=== PATIENT | female | born 1935 | race African-American/Black ===

== ENCOUNTER 2021-07-17 16:22 | Inpatient (IN) | payer OTHER ==
[~2021-07-17] VITALS: Ht 149.9 cm; Wt 59.9 kg
[2021-07-17 17:06] LABS: BASOPHILS % 0.9 % (0.0-2.0); EOSINOPHILS % 3.9 % (0.0-5.0); HEMATOCRIT. 31.9 % (36.0-48.0); HEMOGLOBIN. 10.5 g/dL (12.0-16.0); LYMPHOCYTES % 40.9 % (20.0-50.0); MEAN CORPUSCULAR HEMOGLOBIN 27.3 pg (28.0-32.0); MONOCYTES % 8.7 % (2.0-8.0); NEUTROPHILS % 45.6 % (40.0-76.0); PLATELET 277 x1000/uL (130-400); RED BLOOD CELL COUNT 3.85 mill/uL (4.2-5.4)
[2021-07-17 17:16] LABS: INR 1.1; PROTHROMBIN TIME 11.7 sec (9.6-11.0)
[2021-07-17 17:17] LABS: CHLORIDE 101 mEq/L (98-107)
[2021-07-17] MEDS ORDERED: ONDANSETRON HCL 4MG/2ML INJ IV ONE (19:00)
[2021-07-17] MEDS ORDERED: PANTOPRAZOLE SODIUM 40 MG/VIAL IV ONE (19:30)
[2021-07-17 22:52] LABS: CLARITY URINE CLOUDY (CLEAR); COLOR URINE RED (YELLOW); KETONES URINE NEGATIVE (NEGATIVE); LEUKOCYTE ESTERASE URINE 1+ (NEGATIVE); NITRITE URINE NEGATIVE (NEGATIVE); OCCULT BLOOD URINE 3+ (NEGATIVE); PH URINE 5.5 (4.5-8.0); PROTEIN URINE 1+ (NEGATIVE); SPECIFIC GRAVITY URINE 1.041 (1.005-1.030); UROBILINOGEN URINE 0.2 E.U./dL (0.2-1.0)
[2021-07-17] MEDS ORDERED: IOHEXOL-350 100 ML BOTTLE ONE (23:19)
[2021-07-18] VITALS (13 sets, daily range): BP systolic 99–142; BP diastolic 45–73
[2021-07-18 01:12] LABS: HEMATOCRIT 30.5 % (36.0-48.0); HEMOGLOBIN 10.4 g/dL (12.0-16.0)
[2021-07-18] MEDS ORDERED: HYDR-4135 MT (02:53)
[2021-07-18] MEDS ORDERED: AMLO2.5T45 MT (02:53)
[2021-07-18] MEDS ORDERED: HYDR12.54 MT (02:53)
[2021-07-18] MEDS ORDERED: ONDANSETRON HCL 4MG/2ML INJ IV PRN (03:15)
[2021-07-18] MEDS: ACETAMINOPHEN 325MG TABLET PO PRN ×2 (06:32→11:46)
[2021-07-18] MEDS ORDERED: HYDROCODONE/ACETAMINOPHEN 5/325MG TABLET PO PRN (08:00)
[2021-07-18] MEDS ORDERED: MAGNESIUM/ALUMINUM HYDROXIDE/SIMETHICONE 30ML UDC PO PRN (08:00)
[2021-07-18] MEDS ORDERED: CLONIDINE 0.1MG TABLET PO PRN (08:00)
[2021-07-18] MEDS ORDERED: NALOXONE HCL 0.4MG/ML VIAL IV PRN (08:15)
[2021-07-18 08:40] LABS: BASOPHILS % 0.4 % (0.0-2.0); EOSINOPHILS % 0.3 % (0.0-5.0); HEMATOCRIT. 27.3 % (36.0-48.0); HEMOGLOBIN. 9.4 g/dL (12.0-16.0); LYMPHOCYTES % 25.2 % (20.0-50.0); MEAN CORPUSCULAR HEMOGLOBIN 28.5 pg (28.0-32.0); MEAN CORPUSCULAR VOLUME 82.5 fL (81.0-99.0); MEAN PLATELET VOLUME 7.6 fl (7.4-10.4); MONOCYTES % 7.1 % (2.0-8.0); PLATELET 222 x1000/uL (130-400); RED BLOOD CELL COUNT 3.31 mill/uL (4.2-5.4); RED CELL DISTRIBUTION WIDTH 13.9 % (11.6-14.6)
[2021-07-18 08:53] LABS: CHLORIDE 104 mEq/L (98-107)
[2021-07-18 09:00] LABS: TOTAL IRON BINDING CAPACITY 242 ug/dL (250-450)
[2021-07-18] MEDS ORDERED: HYDROCHLOROTHIAZIDE 12.5MG CAPSULE PO SCH (09:00)
[2021-07-18] MEDS ORDERED: PANTOPRAZOLE SODIUM 40 MG/VIAL IV SCH (09:00)
[2021-07-18] MEDS ORDERED: POTASSIUM CHLORIDE 20MEQ TABLET SR PO SCH (09:00)
[2021-07-18] MEDS ORDERED: AMLODIPINE 5MG TABLET PO SCH (09:00)
[2021-07-18] MEDS ORDERED: FAMOTIDINE 20MG TABLET PO SCH (09:00)
[2021-07-18] MEDS: HYDRALAZINE HCL 50MG TABLET PO SCH ×2 (09:23→22:24)
[2021-07-18] MEDS ORDERED: CEFTRIAXONE 1,000 MG in DEXTROSE 5% WATER 50 ML IV SCH (09:30)
[2021-07-18 10:32] LABS: FOLIC ACID (FOLATE) SERUM 12.6 ng/mL (>5.38)
[2021-07-18 12:34] LABS: *BENZODIAZEPINES SCREEN URINE NEGATIVE (NEGATIVE)
[2021-07-18 12:35] LABS: *AMPHETAMINES SCREEN URINE NEGATIVE (NEGATIVE); *COCAINE SCREEN URINE NEGATIVE (NEGATIVE); CANNABINOID URINE SCREEN NEGATIVE (NEGATIVE); METHADONE URINE SCREEN NEGATIVE (NEGATIVE); OPIATES URINE SCREEN NEGATIVE (NEGATIVE); PHENCYCLIDINE URINE SCREEN NEGATIVE (NEGATIVE)
[2021-07-18 12:36] LABS: *BARBITURATES SCREEN URINE NEGATIVE (NEGATIVE)
== END 2021-07-18 23:56 | disposition short-term general hospital (02) | DRG 378 ==
LOC: ER 16:22 → 5EST 21:18 → ENRESERV 07-18 00:33
PROVIDERS: ADMIT Internal Medicine; ATTEND Internal Medicine
PROC: 30233N1 Transfusion of Nonautologous Red Blood Cells into Peripheral Vein, Percutaneous Approach (ICD-10-PCS; principal; 2021-07-17)
DX: K57.91 Diverticulosis of intestine, part unspecified, without perforation or abscess with bleeding (principal); E44.0 Moderate protein-calorie malnutrition; N39.0 Urinary tract infection, site not specified; I10 Essential (primary) hypertension; F17.200 Nicotine dependence, unspecified, uncomplicated; Z20.822 Contact with and (suspected) exposure to COVID-19; D50.9 Iron deficiency anemia, unspecified; E87.6 Hypokalemia; I95.9 Hypotension, unspecified; Z88.8 Allergy status to other drugs, medicaments and biological substances; Z68.26 Body mass index [BMI] 26.0-26.9, adult; Z79.899 Other long term (current) drug therapy
CPT/HCPCS: 36415; 74174; 80048; 80053; 80305; 81003; 82270; 82607; 82728; 82746; 83540; 83550; 84484; 85014; 85018; 85025; 86850; 86900; 86920; 87426; 93005; 93306; 99285; C9113; J0696; J2405; J7060; P9021; Q9967

== ENCOUNTER 2021-07-21 20:14 | Inpatient (IN) | payer OTHER ==
[~2021-07-21] VITALS: Ht 149.9 cm; Wt 59.9 kg
[~2021-07-21 20:14] MED LIST: AMLO2.5T45 MT; HYDR-4135 MT; HYDR12.54 MT
[2021-07-21] MEDS ORDERED: PANTOPRAZOLE SODIUM 40 MG/VIAL IV STA (21:28)
[2021-07-21 22:13] LABS: BASOPHILS % 0.5 % (0.0-2.0); EOSINOPHILS % 0.3 % (0.0-5.0); HEMATOCRIT. 21.6 % (36.0-48.0); HEMOGLOBIN. 7.1 g/dL (12.0-16.0); LYMPHOCYTES % 13.3 % (20.0-50.0); MEAN CORPUSCULAR HEMOGLOBIN 28.4 pg (28.0-32.0); MEAN CORPUSCULAR VOLUME 86.9 fL (81.0-99.0); MEAN PLATELET VOLUME 7.6 fl (7.4-10.4); MONOCYTES % 4.4 % (2.0-8.0); NEUTROPHILS % 81.5 % (40.0-76.0); PLATELET 210 x1000/uL (130-400); RED BLOOD CELL COUNT 2.49 mill/uL (4.2-5.4); RED CELL DISTRIBUTION WIDTH 14.6 % (11.6-14.6)
[2021-07-21 22:16] LABS: CHLORIDE 105 mEq/L (98-107)
[2021-07-21] MEDS ORDERED: SODIUM CHLORIDE 0.9% 1,000 ML IV ONE (23:15)
[2021-07-22] MEDS ORDERED: POTASSIUM CHLORIDE 20MEQ TABLET SR PO SCH (01:30)
[2021-07-22] MEDS ORDERED: ACETAMINOPHEN 325MG TABLET PO PRN (01:30)
[2021-07-22 05:45] VITALS: BP 149/69
[2021-07-22 08:00] VITALS: BP 142/68
[2021-07-22] MEDS ORDERED: PANTOPRAZOLE SODIUM 40 MG/VIAL IV SCH (10:00)
[2021-07-22 12:00] VITALS: BP 148/57
[2021-07-22 16:00] VITALS: BP 135/63
[2021-07-22 17:09] LABS: BASOPHILS % 0.5 % (0.0-2.0); EOSINOPHILS % 1.3 % (0.0-5.0); HEMATOCRIT. 21.2 % (36.0-48.0); HEMOGLOBIN. 7.2 g/dL (12.0-16.0); LYMPHOCYTES % 36.2 % (20.0-50.0); MEAN CORPUSCULAR HEMOGLOBIN 28.5 pg (28.0-32.0); MEAN CORPUSCULAR VOLUME 83.9 fL (81.0-99.0); MONOCYTES % 6.7 % (2.0-8.0); NEUTROPHILS % 55.3 % (40.0-76.0); PLATELET 191 x1000/uL (130-400); RED BLOOD CELL COUNT 2.53 mill/uL (4.2-5.4); RED CELL DISTRIBUTION WIDTH 14.3 % (11.6-14.6)
[2021-07-22 17:13] LABS: CHLORIDE 106 mEq/L (98-107)
[2021-07-22 17:14] LABS: TOTAL IRON BINDING CAPACITY 197 ug/dL (250-450)
[2021-07-22 17:47] LABS: VITAMIN B12 SERUM >2000 pg/mL pg/mL (211-911)
[2021-07-22 21:23] VITALS: BP 135/61
== END 2021-07-23 00:01 | disposition short-term general hospital (02) | DRG 690 ==
LOC: ER 20:14 → 8WST 07-22 00:58 → ENRESERV 07-22 02:57
PROVIDERS: ADMIT Family Medicine Adult Medicine; ATTEND Family Medicine Adult Medicine
PROC: 30233N1 Transfusion of Nonautologous Red Blood Cells into Peripheral Vein, Percutaneous Approach (ICD-10-PCS; principal; 2021-07-22)
DX: N39.0 Urinary tract infection, site not specified (principal); I10 Essential (primary) hypertension; D50.0 Iron deficiency anemia secondary to blood loss (chronic); I95.9 Hypotension, unspecified; Z88.8 Allergy status to other drugs, medicaments and biological substances; Z79.899 Other long term (current) drug therapy
CPT/HCPCS: 36415; 71045; 80048; 80053; 82248; 82607; 82746; 83540; 83550; 83605; 84484; 85025; 86850; 86900; 86920; 99291; C9113; J7030; P9016

== ENCOUNTER 2024-06-15 18:09 | Emergency (ER) | payer OTHER ==
[~2024-06-15] VITALS: Ht 149.9 cm; Wt 54.0 kg
[2024-06-15 18:11] VITALS: BP 167/71; PULSE 84; RESP 16; TEMP 98.3; O2SAT 100
[2024-06-15 20:55] LABS: CLARITY URINE CLEAR (CLEAR); COLOR URINE YELLOW (YELLOW); GLUCOSE URINE NEGATIVE (NEGATIVE); KETONES URINE NEGATIVE (NEGATIVE); LEUKOCYTE ESTERASE URINE TRACE (NEGATIVE); NITRITE URINE NEGATIVE (NEGATIVE); OCCULT BLOOD URINE NEGATIVE (NEGATIVE); PH URINE 6.5 (4.5-8.0); PROTEIN URINE NEGATIVE (NEGATIVE); SPECIFIC GRAVITY URINE 1.008 (1.005-1.030); UROBILINOGEN URINE 0.2 E.U./dL (0.2-1.0)
[2024-06-15 21:19] LABS: WBC URINE 0-2 /hpf (0-2)
[2024-06-15 21:20] LABS: BACTERIA URINE NONE SEEN; RBC URINE NONE SEEN /hpf (0-2); SQUAMOUS EPITHELIAL CELL URINE 1+ /lpf (RARE/1+); YEAST URINE NONE SEEN
[2024-06-15 21:21] LABS: BASOPHILS % 0.5 % (0.0-2.0); EOSINOPHILS % 0.7 % (0.0-5.0); HEMATOCRIT. 45.4 % (36.0-48.0); HEMOGLOBIN. 14.8 g/dL (12.0-16.0); LYMPHOCYTES % 38.6 % (20.0-50.0); MEAN CORPUSCULAR HEMOGLOBIN 27.6 pg (28.0-32.0); MEAN CORPUSCULAR HGB CONC 32.6 g/dL (31.0-37.0); MEAN CORPUSCULAR VOLUME 84.5 fL (81.0-99.0); MONOCYTES % 7.5 % (2.0-8.0); NEUTROPHILS % 52.7 % (40.0-76.0); PLATELET 308 x1000/uL (130-400); RED BLOOD CELL COUNT 5.38 mill/uL (4.2-5.4); RED CELL DISTRIBUTION WIDTH 14.6 % (11.6-14.6); WHITE BLOOD COUNT 4.6 x1000/uL (4.5-11.0)
[2024-06-15 21:24] LABS: CHLORIDE 98 mEq/L (98-107); POTASSIUM 3.1 mEq/L (3.5-5.1); SODIUM 130 mEq/L (136-145)
[2024-06-15 21:25] LABS: CARBON DIOXIDE 24 mEq/L (21-32)
[2024-06-15 21:26] LABS: CALCIUM 9.9 mg/dL (8.7-10.4)
[2024-06-15 21:30] LABS: CREATININE 0.9 mg/dL (0.6-1.0)
[2024-06-15 21:31] LABS: GLUCOSE 96 mg/dL (70-105); UREA NITROGEN BLOOD 8 mg/dL (9-23)
[2024-06-15] MEDS ORDERED: CEFP200T13 MT (21:58)
[2024-06-15] MEDS ORDERED: POTA-354 MT (21:59)
== END 2024-06-15 23:00 | disposition home or self-care (01) ==
LOC: ER 18:09
DX: N39.0 Urinary tract infection, site not specified (principal); I10 Essential (primary) hypertension; Z88.6 Allergy status to analgesic agent
CPT/HCPCS: 36415; 74176; 80048; 81003; 85025; 99284

== ENCOUNTER 2024-06-17 18:06 | Emergency (ER) | payer OTHER ==
[~2024-06-17] VITALS: Ht 162.6 cm; Wt 54.0 kg
[~2024-06-17 18:06] MED LIST changes: -AMLO2.5T45 MT; +CEFP200T13 MT; -HYDR-4135 MT; -HYDR12.54 MT; +POTA-354 MT
[2024-06-17 18:18] VITALS: TEMP 98; O2SAT 99
[2024-06-17] MEDS: KETOROLAC 30MG/ML VIAL IM ONE (19:15)
[2024-06-17] MEDS: LIDOCAINE 5% PATCH TOP SCH (19:15)
[2024-06-17] MEDS: METHOCARBAMOL 750MG TABLET PO SCH (19:15)
[2024-06-17 19:58] LABS: CLARITY URINE CLEAR (CLEAR); COLOR URINE YELLOW (YELLOW); GLUCOSE URINE NEGATIVE (NEGATIVE); KETONES URINE NEGATIVE (NEGATIVE); LEUKOCYTE ESTERASE URINE TRACE (NEGATIVE); NITRITE URINE NEGATIVE (NEGATIVE); OCCULT BLOOD URINE NEGATIVE (NEGATIVE); PH URINE 6.5 (4.5-8.0); PROTEIN URINE NEGATIVE (NEGATIVE); SPECIFIC GRAVITY URINE 1.005 (1.005-1.030); UROBILINOGEN URINE 0.2 E.U./dL (0.2-1.0)
[2024-06-17 20:39] LABS: BACTERIA URINE TRACE; RBC URINE NONE SEEN /hpf (0-2); SQUAMOUS EPITHELIAL CELL URINE FEW /lpf (RARE/1+)
[2024-06-17 21:34] LABS: BASOPHILS % 1.2 % (0.0-2.0); EOSINOPHILS % 1.7 % (0.0-5.0); HEMATOCRIT. 41.7 % (36.0-48.0); HEMOGLOBIN. 14.3 g/dL (12.0-16.0); LYMPHOCYTES % 39.8 % (20.0-50.0); MEAN CORPUSCULAR HEMOGLOBIN 28.5 pg (28.0-32.0); MEAN CORPUSCULAR HGB CONC 34.2 g/dL (31.0-37.0); MEAN CORPUSCULAR VOLUME 83.1 fL (81.0-99.0); MEAN PLATELET VOLUME 7.5 fl (7.4-10.4); MONOCYTES % 8.5 % (2.0-8.0); NEUTROPHILS % 48.8 % (40.0-76.0); PLATELET 294 x1000/uL (130-400); RED BLOOD CELL COUNT 5.02 mill/uL (4.2-5.4); WHITE BLOOD COUNT 5.5 x1000/uL (4.5-11.0)
[2024-06-17 21:40] LABS: CHLORIDE 96 mEq/L (98-107); POTASSIUM 3.5 mEq/L (3.5-5.1); SODIUM 126 mEq/L (136-145)
[2024-06-17 21:41] LABS: CARBON DIOXIDE 24 mEq/L (21-32)
[2024-06-17 21:42] LABS: CALCIUM 9.4 mg/dL (8.7-10.4)
[2024-06-17] MEDS: SODIUM CHLORIDE 0.9% 1,000 ML IV ONE (21:45)
[2024-06-17 21:46] LABS: CREATININE 0.8 mg/dL (0.6-1.0); GLUCOSE 88 mg/dL (70-105); UREA NITROGEN BLOOD 10 mg/dL (9-23)
[2024-06-17 21:48] LABS: ALANINE AMINOTRANSFERASE 12 IU/L (10-49); ALBUMIN 4.1 g/dL (3.2-4.8); ASPARTATE AMINOTRANSFERASE 24 IU/L (<34)
[2024-06-17 21:49] LABS: BILIRUBIN DIRECT 0.3 mg/dL (<=3.0); BILIRUBIN TOTAL 1.1 mg/dL (0.1-1.0); PROTEIN TOTAL 7.2 g/dL (6.0-8.3)
[2024-06-17] MEDS: KETOROLAC 30MG/ML VIAL IM NR (22:45)
[2024-06-17] MEDS ORDERED: DOCUSATE SODIUM 100MG CAPSULE PO PRN (23:00)
[2024-06-17] MEDS ORDERED: CLONIDINE 0.1MG TABLET PO PRN (23:00)
[2024-06-17] MEDS ORDERED: GUAIFENESIN 200MG/10ML SUGAR FREE UDC PO PRN (23:00)
[2024-06-17] MEDS ORDERED: KETOROLAC 15MG/ML VIAL IV PRN (23:00)
[2024-06-17] MEDS ORDERED: NITROGLYCERIN 0.4MG TABLET SL SL PRN (23:00)
[2024-06-17] MEDS ORDERED: MAGNESIUM/ALUMINUM HYDROXIDE/SIMETHICONE 30ML UDC PO PRN (23:00)
[2024-06-17] MEDS ORDERED: ACETAMINOPHEN 325MG TABLET PO PRN ×2 (23:00)
[2024-06-17] MEDS ORDERED: IPRATROPIUM/ALBUTEROL 0.5-3(2.5)MG/3ML NEB NEB PRN (23:00)
[2024-06-17] MEDS ORDERED: ZOLPIDEM TARTRATE 5MG TABLET PO PRN (23:00)
[2024-06-17] MEDS ORDERED: ONDANSETRON HCL 4MG/2ML INJ IV PRN (23:00)
[2024-06-17] MEDS: PIPERACILLIN/TAZO 3.375G/50ML 50 ML IV STA (23:26)
[2024-06-18 00:06] LABS: IRON 44 ug/dL (50-170)
[2024-06-18 00:09] LABS: TOTAL IRON BINDING CAPACITY 286 ug/dl (250-425)
[2024-06-18 00:12] LABS: T4 FREE 1.68 ng/dL (0.89-1.76); THYROID STIMULATING HORMONE 3.92 uIU/mL (0.55-4.78)
[2024-06-18 01:02] VITALS: BP 138/69; PULSE 82; RESP 18; O2SAT 100
[2024-06-18] MEDS ORDERED: PIPERACILLIN/TAZO 3.375G/50ML 50 ML IV SCH (06:00)
[2024-06-18] MEDS ORDERED: ASPIRIN 81MG EC TABLET PO SCH (09:00)
[2024-06-18] MEDS ORDERED: ENOXAPARIN 30MG/0.3ML SYR SUBCUT SCH (09:00)
[2024-06-18] MEDS ORDERED: FAMOTIDINE 20MG TABLET PO SCH (09:00)
[2024-06-18] MEDS ORDERED: AMLODIPINE 10MG TABLET PO SCH (09:00)
[2024-06-18 17:06] LABS: FOLIC ACID (FOLATE) SERUM 19.58 ng/mL (>5.38)
[2024-06-18 17:42] LABS: VITAMIN B12 SERUM > 2000 pg/mL (211-911)
== END 2024-06-18 01:37 | disposition short-term general hospital (02) ==
LOC: ER 18:06
DX: E87.1 Hypo-osmolality and hyponatremia (principal); M54.50 Low back pain, unspecified; I10 Essential (primary) hypertension; Z79.899 Other long term (current) drug therapy; Z79.82 Long term (current) use of aspirin
CPT/HCPCS: 99285; 96365; 96361; 80076; 80048; 81003; 82607; 82746; 83036; 84439; 83540; 83550; 83690; 83930; 84443; 85025; 87086; 36415; 96372; 93970; J1885; J2543; J7030